=== PATIENT | female | born 1945 | race Caucasian/White ===

== ENCOUNTER 2025-02-16 16:08 | Observation (INO) | payer OTHER, MEDICARE ==
[2025-02-16 16:47] VITALS: BMI 21.8
[2025-02-16 17:14] LABS: ABSOLUTE IMMATURE GRANULOCYTES 0.02 x10^3/uL (0.0-0.031); BASOPHILS # 0.11 x10^3/uL (0.01-0.08); EOSINOPHIL % 10.2 % (0.7-5.8); EOSINOPHILS # 0.78 x10^3/uL (0.04-0.36); HEMATOCRIT 41.1 % (34.1-44.9); HEMOGLOBIN 13.2 g/dL (11.2-15.7); MCHC 32.1 g/dl (32.2-35.5); MEAN CELL VOLUME 86.7 fl (79.4-94.8); MEAN PLT VOLUME 9.7 fl (9.4-12.3); MONOCYTE % 5.2 % (4.7-12.5); PLATELET COUNT 320 x10^3/uL (182-369); RDW 14.1 % (12.5-17.0)
[2025-02-16 17:24] LABS: INR 0.99 (0.83-1.09); PROTHROMBIN TIME (PATIENT) 10.9 SEC (9.7-13.0)
[2025-02-16 17:25] LABS: PH,URINE 7.5 (5.0-8.0); URINE APPEARANCE CLOUDY; URINE BILIRUBIN NEGATIVE (NEGATIVE); URINE COLOR YELLOW; URINE GLUCOSE (UA) NEGATIVE (NEGATIVE); URINE KETONE NEGATIVE (NEGATIVE); URINE LEUK ESTERASE NEGATIVE (NEGATIVE); URINE NITRITE NEGATIVE (NEGATIVE); URINE PROTEIN NEGATIVE (NEGATIVE)
[2025-02-16 17:40] LABS: POTASSIUM 4.3 mmol/L (3.5-5.1)
[2025-02-16 17:46] LABS: CALCIUM 10.7 mg/dL (8.5-10.1)
[2025-02-16 17:47] LABS: ALBUMIN 2.9 g/dl (3.4-5.0); BLOOD UREA NITROGEN 20.9 mg/dL (7-18); MAGNESIUM 2.5 mg/dL (1.8-2.4)
[2025-02-16 17:49] LABS: BILIRUBIN,TOTAL 0.3 mg/dL (0.2-1); CREATININE 0.9 mg/dL (0.55-1.3)
[2025-02-16 17:51] LABS: TOT PROT 6.5 g/dl (6.4-8.2)
[2025-02-16] MEDS ORDERED: CEFTRIAXONE 1 GM/50 ML BAG ONE (22:28)
[2025-02-16] MEDS: CEFTRIAXONE 1,000 MG in DEXTROSE 5%-WATER - 50 ML IVPB ONE (22:39)
[2025-02-16] MEDS ORDERED: AZITHROMYCIN IVPB 500 MG/250 ML BAG IVPB ONE (23:24)
[2025-02-17] MEDS: AZITHROMYCIN IVPB 500 MG in DEXTROSE 5%-WATER - 250 ML IVPB ONE (00:20)
[2025-02-17] MEDS ORDERED: LACTULOSE 20 GM/30 ML UDC (FOR ORAL USE ONLY) PO PRN (02:44)
[2025-02-17 08:23] LABS: HEMATOCRIT 40.9 % (34.1-44.9); HEMOGLOBIN 12.8 g/dL (11.2-15.7); MCHC 31.3 g/dl (32.2-35.5); MEAN CELL VOLUME 86.5 fl (79.4-94.8); MEAN PLT VOLUME 9.8 fl (9.4-12.3); PLATELET COUNT 291 x10^3/uL (182-369)
[2025-02-17 08:42] LABS: POTASSIUM 3.9 mmol/L (3.5-5.1)
[2025-02-17 08:48] LABS: CALCIUM 10.4 mg/dL (8.5-10.1)
[2025-02-17 08:49] LABS: BLOOD UREA NITROGEN 15.3 mg/dL (7-18); MAGNESIUM 2.1 mg/dL (1.8-2.4)
[2025-02-17 08:52] LABS: CREATININE 0.7 mg/dL (0.55-1.3); PHOSPHOROUS 2.8 mg/dL (2.5-4.9)
[2025-02-17 08:53] LABS: BILIRUBIN,TOTAL 0.5 mg/dL (0.2-1); TOT PROT 6.7 g/dl (6.4-8.2)
[2025-02-17] MEDS ORDERED: ACETAMINOPHEN 325 MG TABLET (FP) PO PRN (09:41)
[2025-02-17] MEDS ORDERED: AZITHROMYCIN IVPB 500 MG/250 ML BAG IVPB SCH (10:00)
[2025-02-17] MEDS: AZITHROMYCIN IVPB 250 MG in DEXTROSE 5%-WATER - 250 ML IVPB SCH (10:21)
[2025-02-17] MEDS: NYSTATIN POWDER 100,000 UNITS/GM - 15 GM TOPICAL POWDER TP SCH (10:30)
[2025-02-17] MEDS: ENOXAPARIN NA (PORCINE) 30 MG/0.3 ML DISP.SYRIN SQ SCH (10:31)
[2025-02-17] MEDS: MAGNESIUM HYDROX 2400MG/30ML ORAL SUSPENSION 30 ML CUP PO SCH (10:31)
[2025-02-17] MEDS: PANTOPRAZOLE 20 MG TABLET PO SCH (10:32)
[2025-02-17] MEDS: FUROSEMIDE 40 MG TABLET (FP) PO SCH (10:32)
[2025-02-17] MEDS: ASPIRIN 81 MG CHEWABLE TABLETS PO SCH (10:32)
[2025-02-17] MEDS: POLYETHYLENE GLYCOL (HEALTHYLAX) 3350 17 GM PACKET PO SCH (10:32)
[2025-02-17] MEDS: METOPROLOL TARTRATE 25 MG TABLET (FP) PO SCH (10:33)
[2025-02-17] MEDS: CEFTRIAXONE 1 GM in DEXTROSE 5%-WATER - 50 ML IVPB SCH (11:45)
[2025-02-17] MEDS: ATORVASTATIN CA 10 MG TABLET (FP) PO SCH (21:43)
[2025-02-17] MEDS: DOCUSATE SODIUM 100 MG CAPSULE (FP) PO SCH (21:45)
[2025-02-18 08:13] LABS: ABSOLUTE IMMATURE GRANULOCYTES 0.03 x10^3/uL (0.0-0.031); BASOPHILS # 0.09 x10^3/uL (0.01-0.08); EOSINOPHILS # 0.63 x10^3/uL (0.04-0.36); HEMATOCRIT 41.6 % (34.1-44.9); HEMOGLOBIN 13.3 g/dL (11.2-15.7); MEAN CELL VOLUME 86.5 fl (79.4-94.8); MONOCYTE # 0.44 x10^3/uL (0.24-0.86); PLATELET COUNT 292 x10^3/uL (182-369); RDW 14.1 % (12.5-17.0)
[2025-02-18 09:03] LABS: POTASSIUM 3.9 mmol/L (3.5-5.1)
[2025-02-18 09:15] LABS: ALBUMIN 3.1 g/dl (3.4-5.0); BLOOD UREA NITROGEN 16.2 mg/dL (7-18)
[2025-02-18 09:16] LABS: MAGNESIUM 2.5 mg/dL (1.8-2.4)
[2025-02-18 09:23] LABS: CREATININE 0.9 mg/dL (0.55-1.3)
[2025-02-18 09:24] LABS: BILIRUBIN,TOTAL 0.5 mg/dL (0.2-1); TOT PROT 6.9 g/dl (6.4-8.2)
[2025-02-19 08:57] VITALS: BP 133/87; PULSE 74; RESP 16; TEMP 97.5
== END 2025-02-19 09:30 ==
LOC: JER 16:08 → JERBED 22:03 → INTOOBSV 22:03 → J7W 02-17 02:32
PROVIDERS: ADMIT Internal Medicine
PROC: 3E03329 Introduction of Other Anti-infective into Peripheral Vein, Percutaneous Approach (ICD-10-PCS; principal; 2025-02-16)
PROC: 3E023GC Introduction of Other Therapeutic Substance into Muscle, Percutaneous Approach (ICD-10-PCS; 2025-02-16)
DX: J18.9 Pneumonia, unspecified organism (principal); N17.9 Acute kidney failure, unspecified; I25.10 Atherosclerotic heart disease of native coronary artery without angina pectoris; R09.02 Hypoxemia; K59.09 Other constipation; E78.5 Hyperlipidemia, unspecified; I24.89 Other forms of acute ischemic heart disease; I10 Essential (primary) hypertension; I25.2 Old myocardial infarction; Z87.440 Personal history of urinary (tract) infections
CPT/HCPCS: 0241U-QW; 36415; 71045-TC-FY; 71275-TC; 80053; 81003; 83735; 83880; 84100; 84484; 85025; 85027; 85610; 85730; 86850; 86900; 86901; 87086; 93005; 93010; 96365; 96372; 96375; 97116-GP; 97162-GP; 99285-25; G0378; Q9967